=== PATIENT | female | born 1950 | race Caucasian/White ===

== ENCOUNTER 2017-04-22 14:41 | Emergency (ER) | payer OTHER ==
[~2017-04-22] VITALS: Ht 157.5 cm; Wt 57.9 kg
[2017-04-22 14:47] VITALS: BP 159/81; PULSE 75; RESP 16; TEMP 98.5; O2SAT 97
--- NOTE | 2017-04-22 16:04 | RADRPT ---
EXAM DATE/TIME: 04/22/2017 15:43 [facility] COMPARISON: No previous studies available for comparison. INDICATIONS : Trauma. Hit right temporal region 10 days ago. Cephalgia. RADIATION DOSE: 63.63 CTDIvol (mGy) MEDICAL HISTORY : None SURGICAL HISTORY : None. ENCOUNTER: Initial ACUITY: 1 week PAIN SCALE: 7/10 LOCATION: Right temporal TECHNIQUE: Multiple contiguous axial images were obtained of the head. Using automated exposure control and adj ustment of the mA and/or kV according to patient size, radiation dose was kept as low as reasonably a chievable to obtain optimal diagnostic quality images. DICOM format image data is available electro nically for review and comparison. FINDINGS: CEREBRUM: The ventricles are normal for age. No evidence of midline shift, mass lesion, hemorrhage or acute in farction. No extra-axial fluid collections are seen. POSTERIOR FOSSA: The cerebellum and brainstem are intact. The 4th ventricle is midline. The cerebellopontine angle i s unremarkable. EXTRACRANIAL: The visualized portion of the orbits is intact. Probable small scalp hematoma in the right anterior t emporal region. SKULL: The calvaria is intact. No evidence of skull fracture. CONCLUSION: 1. No acute intracranial abnormality. Loyd Rosario MD on April 22, 2017 at 16:01 Board Certified Radiologist. This report was verified electronically.
--- NOTE | 2017-04-22 16:13 | PD ---
HPI Chief Complaint: Headache Time Seen by Provider: 15:09 Travel History International Travel<30 days: No Contact w/Intl Traveler<30days: No Traveled to known affect area: No History of Present Illness HPI 66-year-old female presents emergency department for evaluation of a right- sided headache after a closed head injury approximately 10 days ago. Patient reports injury occurred when she bent down to pickers material handlers her slippers and on upon standing struck her head on a piece of wooden furniture. She did not lose consciousness. She remained standing at her time. She reports she developed a hematoma to the right side of the scalp which has decreased in size since the injury. She reports she's had a continue dull throbbing headache on the right side. She denies visual changes, nausea or vomiting, numbness/weakness/ tingling in the extremities. Symptom severity is mild. No aggravating or alleviating factors. PFSH Past Medical History Medical History: Denies Significant Hx Influenza Vaccination: No ?: Not Past Surgical History Surgical History: No Previous Surgery Social History Alcohol Use: Yes (OCCAS) Tobacco Use: No Substance Use: No Allergies-Medications (Allergen,Severity, Reaction): Coded Allergies: No Known Allergies (Verified Allergy, Unknown, 04/22/17) Reported Meds & Prescriptions Reported Meds & Active Scripts Active No Active Prescriptions or Reported Medications Review of Systems Except as stated in HPI: all other systems reviewed are Neg Eyes: No: Visual changes HENT: Positive: Headaches Cardiovascular: No: Chest Pain or Discomfort Respiratory: No: Shortness of Breath Gastrointestinal: No: Abdominal Pain Physical Exam Narrative GENERAL: [Alert, well-appearing female . reading a book resting on the stretcher ] SKIN: Focused skin assessment warm/dry. HEAD: Normocephalic. Very small Small right-sided frontal hematoma EYES: Pupils equal and round. No scleral icterus. No injection or drainage. EOMs intact ENT: No nasal bleeding or discharge. Mucous membranes pink and moist. NECK: Trachea midline. No JVD. CARDIOVASCULAR: Regular rate and rhythm. No murmur appreciated. RESPIRATORY: No accessory muscle use. Clear to auscultation. Breath sounds equal bilaterally. GASTROINTESTINAL: Abdomen soft, non-tender, nondistended. Hepatic and splenic margins not palpable. MUSCULOSKELETAL: No obvious deformities. No clubbing. No cyanosis. No edema. NEUROLOGICAL: Awake and alert. No obvious cranial nerve deficits. Motor grossly within normal limits. Normal speech. PSYCHIATRIC: Appropriate mood and affect; insight and judgment normal. Data Data Last Documented VS Vital Signs Date Time Temp Pulse Resp B/P (MAP) Pulse Ox O2 Delivery O2 Flow Rate FiO2 04/22/17 14:47 98.5 75 16 159/81 (107) [address] Brain W/O Iv Contrast(Rout) (04/22/17 ) MDM Medical Decision Making Medical Screen Exam Complete: Yes Emergency Medical Condition: Yes Differential Diagnosis Scalp hematoma, skull fracture, ICH, headache Narrative Course 66-year-old female presents emergency department for evaluation of a right- sided headache after a closed head injury approximately 10 days ago. Patient reports injury occurred when she bent down to pickers material handlers her slippers and on upon standing struck her head on a piece of wooden furniture. She did not lose consciousness. She remained standing at her time. She reports she developed a hematoma to the right side of the scalp which has decreased in size since the injury. She reports she's had a continue dull throbbing headache on the right side. She denies visual changes, nausea or vomiting, numbness/weakness/ tingling in the extremities. Her physical exam is reassuring. CT scan of the brain was negative for acute abnormality. Patient instructed to follow-up with her primary doctor for recheck or return to emergency department if she develops new or worsening symptoms. Patient verbalizes understanding and agrees to plan. Diagnosis Primary Impression: Headache Qualified Codes: R51 - Headache Referrals: Primary Care Physician Additional Instructions: Take [id number] Motrin or Aleve as needed for pain. Follow-up with her primary doctor. Return to emergency department if he developed new or worsening symptoms. Scripts No Active Prescriptions or Reported Meds Disposition: 01 DISCHARGE HOME Condition: Stable Claudia Duncan Apr 22, 2017 16:13
== END 2017-04-22 16:32 | disposition home or self-care (01) ==
LOC: PHEFT 14:41
DX: R51 Headache (principal)
CPT/HCPCS: 70450; 99284